=== PATIENT | female | born 1970 | race Caucasian/White ===

== ENCOUNTER → 2019-12-27 | Outpatient (CLI) | payer BC | LOC: YCFC.O 11:12 | PROVIDERS: ATTEND Family Medicine | DX: Z20.828 Contact with and (suspected) exposure to other viral communicable diseases (principal) ==

== ENCOUNTER → 2020-04-09 | Outpatient (CLI) | payer BC | LOC: LAB.O 19:27 | PROVIDERS: ATTEND Nurse Practitioner Family | DX: R10.31 Right lower quadrant pain (principal) ==

== ENCOUNTER → 2020-04-10 | Outpatient (CLI) | payer BC ==
--- NOTE | 2020-04-10 12:39 | CT ---
EXAM DESCRIPTION: Abdomen/Pelvis w/wo Contrast CLINICAL HISTORY: 50 years Female, RLQ PAIN COMPARISON: None. TECHNIQUE: CT of the abdomen and pelvis acquired without and with IV contrast material. Coronal and sagittal reformations provided. This exam was performed according to our departmental dose-optimization program, which includes automated exposure control, adjustment of the mA and/or kV according to patient size and/or use of iterative reconstruction technique. FINDINGS: Lung bases: Clear. Solid Organs: Hypodense lesion in the lateral right hepatic dome measuring 12 mm and may represent hemangioma or cyst. Unremarkable spleen, pancreas, gallbladder, adrenal glands, kidneys. GI tract: Unremarkable stomach. No obstruction of the small bowel. Moderate amount of stool within the rectal vault. Moderate stool within the ascending and transverse colon. Thickened dilated appendix measuring 12 mm with mild appendiceal stranding but no fluid collection. Vascular: Mild atherosclerosis. Musculoskeletal and soft tissues: No acute fracture or aggressive appearing osseous lesion. Soft tissues unremarkable. Urinary bladder: Normal. Uterus and adnexa: Retroverted uterus with mildly enhancing lesion measuring 12.8 cm in the right uterine body. Other: None. IMPRESSION: 1. Acute uncomplicated appendicitis. No surrounding fluid collection or free air. 2. Uterine lesion may represent a fibroid. Nonemergent ultrasound may further evaluate. 3. Moderate stool burden. Electronically signed by: Isaac Kerr MD 04/10/2020 12:37 PM [employer]
== END ==
LOC: CT 11:04
PROVIDERS: ATTEND Nurse Practitioner Family
DX: K37 Unspecified appendicitis (principal); N85.8 Other specified noninflammatory disorders of uterus